=== PATIENT | female | born 1940 | race Two or more races ===

== ENCOUNTER 2019-06-02 09:40 | Outpatient (CLI) | payer OTHER ==
[~2019-06-02 09:40] MED LIST: ASA81 MG PO; IMDUR30 MG PO; LEVOXYL50 MCG PO; METOPROLOL SUCC50 MG PO
== END 2019-06-02 11:09 | disposition home or self-care (01) ==
LOC: NUCLEAR 09:40
DX: C18.2 Malignant neoplasm of ascending colon (principal)
CPT/HCPCS: 78815; A9552